=== PATIENT | male | born 2000 | race African-American/Black ===

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

== ENCOUNTER 2018-07-16 17:05 | Emergency (ER) | payer OTHER ==
[2018-07-16] MEDS ORDERED: IV NORMAL SALINE 1,000ML 1,000 ML IV SCH (17:30)
[2018-07-16] MEDS: ACETAMINOPHEN 650 MG SUPP.RECT. PR ONE ×2 (17:30→17:53)
--- NOTE | 2018-07-16 17:30 | PHYS DOC ---
Past History Past Medical History: No Pertinent History Past Surgical History: Other Smoking: Non-smoker Alcohol Use: None Drug Use: None Adult General Chief Complaint Chief Complaint: SEIZURE HPI HPI Patient is a 17 year old male who brought in because of seizure. Patient did not have history of seizures or normal symptoms this morning and his mother saw him. Patient had shaking and seizure-like activity while he was at work without loss of consciousness that last about 30 seconds and was not responding to the question but responding to pain. History was taking from patient mother. Review of Systems Review of Systems Unable to obtain because of medical condition Family History Family History Non-contributory Current Medications Current Medications See Nursing for home meds Current Medications Medications (Trade) Dose Ordered Sig/Jonnathan Start Time Stop Time Status Last Admin Dose Admin Acetaminophen (Tylenol Supp) 650 mg 1X ONCE 07/16/18 17:30 07/16/18 17:31 Sodium Chloride 1,000 ml @ 1,000 mls/hr Q1H 07/16/18 17:30 07/16/18 18:29 07/16/18 17:20 1,000 MLS/HR Allergies Allergies Allergies Coded Allergies Type Severity Reaction Last Updated Verified No Known Drug Allergies 11/26/16 No Physical Exam Physical Exam Constitutional: Well nourished, mild distress, non-toxic appearance does not answer the question but making noise and some words[] HENT: Normocephalic, atraumatic Eyes: PERRLA, EOMI, conjunctiva normal, no discharge. [] Neck: Normal range of motion, no tenderness, supple, no stridor. [] Cardiovascular: Tachycardia, no murmur [] Lungs & Thorax: Bilateral breath sounds clear to auscultation [] Abdomen: Bowel sounds normal, soft, no tenderness, no masses, no pulsatile masses. [] Skin: Warm, dry, no erythema, no rash. [] Back: No tenderness, no CVA tenderness. [] Extremities: No tenderness, no cyanosis, no clubbing, ROM intact, no edema. [] Neurologic: Lethargic, moves all extremities Psychologic: Unable to evaluate EKG hearing aide technician shows nl sinus tachycardia[] Radiology/Procedures Radiology/Procedures I interpretation of chest x-ray shows no acute cardiopulmonary findings. Does have borderline cardiomegaly. Some blunting a less closed phrenic angle. No free air in the diaphragm. No obvious fractures. My interpretation CT of head shows no shift, mass, edema, bleed, or fracture. Does have some increase patient ethmoid sinuses.[] Course & Med Decision Making Course & Med Decision Making Pertinent Labs and Imaging are pending. Patient Transferred to Dr. Berger at [address]. See Dr. Hansen chart for details. Procedure note-discussed risks and benefits with mother- indications and complications of spinal tap. Mother agrees to procedure for her son. Patient placed in the right left lateral position. Sterile technique use of mass, draping. Prepped lumbar L4 interspace.with betadine. . Injected area with lidocaine. Inserted a 23-gauge spinal needle with return of initially blood tinged spinal fluid which cleared by second 2 tube. Fluid sent for cultures and labs. Patient tolerated procedure well. Pt. did receive 2 mg Versed for his chills, twitching and spasms prior to procedure. Impression: 1. Acute Mental Status Change 2. New Onset Seizure 3. Fever 4. Rule out Meningitis 5. Viral Syndrome- ?, Garrard + Heterophil Agg. 6. Hyponatremia 7. Possible Prolonged Post ictal 8. Ethmoid Sinusitis Discussed presentation, testing and tx. plan with Dr. Preston- will accept pt for admission at [facility], with consults to neurology and infectious dz. There was some clearing of his mentation by time he was transfer to [facility]. Ketty Disclaimer Ketty Disclaimer This electronic medical record was generated, in whole or in part, using a voice recognition dictation system. Departure Departure: Impression: Primary Impression: Altered mental status, unspecified Referrals: YOMI JACOBS MD (PCP) ANTHONY HANSEN MD Jul 16, 2018 17:30 ROSENDO BERGER MD Jul 16, 2018 21:20
[2018-07-16 17:50] LABS: BASO % 1 % (0-3); EOS % 0 % (0-3); HEMATOCRIT 42.3 % (39.0-53.0); LYMPH # 1.3 x10^3/uL (1.0-4.8); LYMPH % 27 % (24-48); MEAN CORPUSCULAR HEMOGLOBIN 27 pg (25-35); MEAN CORPUSCULAR HGB CONC 33 g/dL (31-37); MEAN CORPUSCULAR VOLUME 83 fL (79-100); MONO # 0.5 x10^3/uL (0.0-1.1); MONO % 9 % (0-9); NEUT # 3.1 x10^3uL (1.8-7.7); NEUT % 63 % (31-73); PLATELET COUNT 201 x10^3/uL (140-400); RED BLOOD COUNT 5.13 x10^6/uL (4.30-5.70); RED CELL DISTRIBUTION WIDTH 13.6 % (11.5-14.5); WHITE BLOOD COUNT 4.9 x10^3/uL (4.0-11.0)
--- NOTE | 2018-07-16 17:56 | RAD ---
CT head without contrast HISTORY: Altered mental status, seizure and fever. TECHNIQUE: [address] imaging skull base to vertex. COMPARISON: CT head November 26, 2016. FINDINGS: No intracranial hemorrhage, mass, hydrocephalus, extra-axial fluid collections or infarction. No acute ischemic change. No malin matter heterotopia evident. Orbits, mastoids and bones are unremarkable. Mucosal thickening and partial opacification of the ethmoid sinuses. IMPRESSION: No acute intracranial CT abnormality. Ethmoid sinus disease. Exposure: One or more of the following individualized dose reduction techniques were utilized for this examination: 1. Automated exposure control 2. Adjustment of the mA and/or kV according to patient size 3. Use of iterative reconstruction technique Electronically signed by: Devan Palacio MD (07/16/2018 5:53 PM) [id number]
[2018-07-16] MEDS ORDERED: IV NORMAL SALINE 1,000ML 1,000 ML IV ONE ×2 (18:00)
--- NOTE | 2018-07-16 18:02 | RAD ---
PORTABLE CHEST 1V dated 07/16/2018 4:57 PM. Comparison: 11/26/2016 Clinical Indication: SEIZURE AND FEVER, AMS. Findings: Single upright portal exam performed. Heart and mediastinal contours are stable. Lung volumes are low, limiting evaluation. No consolidation or pleural effusion. No pneumothorax. Impression: No acute radiographic abnormality. Electronically signed by: Vernon Love MD (07/16/2018 5:59 PM) [facility]
[2018-07-16 18:04] LABS: ALBUMIN 3.9 g/dL (3.4-5.0); ALBUMIN/GLOBULIN RATIO 0.9 (1.0-1.7); CALCIUM 8.8 mg/dL (8.5-10.1); CREATININE 1.1 mg/dL (0.7-1.3); GFR 104.3; POTASSIUM 3.5 mmol/L (3.5-5.1); TOTAL BILIRUBIN 0.5 mg/dL (0.2-1.0); TOTAL PROTEIN 8.1 g/dL (6.4-8.2)
[2018-07-16 18:07] LABS: MONONUCLEOSIS PATIENT POSITIVE (NEGATIVE)
[2018-07-16] MEDS ORDERED: cefTRIAXone SODIUM 1 GM VIAL IV ONE ×2 (18:17→20:43)
[2018-07-16] MEDS ORDERED: IV NORMAL SALINE 50ML 50 ML ONE ×2 (18:17→20:43)
[2018-07-16 18:23] LABS: INFLUENZA A PATIENT NEGATIVE (NEGATIVE); INFLUENZA B PATIENT NEGATIVE (NEGATIVE)
[2018-07-16] MEDS ORDERED: MIDAZOLAM HCL PF 5 MG/5 ML VIAL. ONE (19:33)
[2018-07-16] MEDS ORDERED: LIDOCAINE 1%/EPI 1:100,000 20 ML VIAL. ONE (19:42)
[2018-07-16 19:44] LABS: BARBITURATES NEG (NEG); BENZODIAZEPINES NEG (NEG); CANNABINOIDS POS (NEG); COCAINE NEG (NEG); METHADONE NEG (NEG); OPIATES NEG (NEG); PHENCYCLIDINE NEG (NEG)
[2018-07-16 19:47] LABS: BILIRUBIN,URINE NEG (NEG); CLARITY,URINE CLEAR; COLOR,URINE YELLOW; GLUCOSE,URINE NEG (NEG)
[2018-07-16 19:48] LABS: BACTERIA,URINE 0 /HPF (0-FEW); NITRITE,URINE NEG (NEG); RBC,URINE RARE /HPF (0-2); SQUAMOUS EPITHELIAL CELL,UR OCC /LPF; UROBILINOGEN,URINE 1 mg/dL (0.2 mg/dL); WBC,URINE OCC /HPF (0-4)
[2018-07-16 19:49] LABS: AMPHETAMINE/METHAMPHETAMINE NEG (NEG)
[2018-07-16] MEDS: ACYCLOVIR SODIUM 800 MG in IV DEXTROSE 5% 250 ML IV STA ×2 (20:09→21:05)
[2018-07-16] MEDS ORDERED: ACETAMINOPHEN 500 MG TABLET PO ONE (20:15)
[2018-07-16] MEDS ORDERED: IV RINGERS SOLUTION,LACTATED 1,000 ML IV ONE (20:30)
[2018-07-16 20:50] LABS: CSF PROTEIN 36.9 mg/dL (15.0-45.0)
[2018-07-16 20:58] LABS: CSF COLOR COLORLESS
[2018-07-16 20:59] LABS: CSF CLARITY CLEAR
[2018-07-16 21:00] LABS: CSF MON % 3 %; CSF OTHER % 0 %; CSF PMN % 0 %; CSF RBC COUNT 12; CSF WBC COUNT 3
[2018-07-16 21:25] VITALS: BP 134/79
[2018-07-16] MEDS ORDERED: LIDOCAINE 1%/EPI 1:100,000 20 ML VIAL. IJ ONE (21:30)
[2018-07-16] MEDS ORDERED: MIDAZOLAM HCL PF 5 MG/5 ML VIAL. IV ONE (21:30)
== END 2018-07-16 22:23 | disposition short-term general hospital (02) ==
LOC: ER 17:05
DX: G40.89 Other seizures (principal); R41.82 Altered mental status, unspecified; E87.1 Hypo-osmolality and hyponatremia; J32.2 Chronic ethmoidal sinusitis
CPT/HCPCS: 36415; 62270; 70450; 71045; 80053; 80307; 81001; 82945; 82947; 83605; 84157; 85025; 85610; 86308; 87040; 87070; 87071; 87075; 87102; 87252; 87804; 87880; 89051; 96361; 96365; 96367; 96368; 99285; G0480; J0133; J0696; J2250; J7120; J7030

== ENCOUNTER 2018-12-02 22:09 | Emergency (ER) | payer OTHER ==
[~2018-12-02] VITALS: Ht 172.7 cm; Wt 110.1 kg
--- NOTE | 2018-12-02 22:14 | ED.ADGEN ---
Past History Past Medical History: No Pertinent History Past Surgical History: No Surgical History Smoking: Non-smoker Alcohol Use: Rarely Drug Use: None Adult General Chief Complaint Chief Complaint "... All of sudden I got this severe .. sharp Lt side chest . ..pain .. it worse with deep breaths or coughing..." HPI HPI Patient is a 18 year old male who presents with above hx and complaints sharp Lt. side chest pain. Pain appears to be pleuritic. Patient denies any history of trauma. Patient denies any history of travel or specific ill contacts. Patient denies any history of cardiac or DVT or pulmonary embolisms. Patient has not been coughing or having fevers. No history immunosuppression. Pt. last had vaginal intercourse approximately 1 yr ago. No hx prior UTI or STD's. Pt. hx recent mononucleosis. Pt. follows with Dr. Mendez Review of Systems Review of Systems Constitutional: Denies fever or chills [] Eyes: Denies change in visual acuity, redness, or eye pain [] HENT: Denies nasal congestion or sore throat [] Respiratory: Complaints of pleuritic chest pain Cardiovascular: No additional information not addressed in HPI [] GI: Denies abdominal pain, nausea, vomiting, bloody stools or diarrhea [] : Denies dysuria or hematuria [] Musculoskeletal: Denies back pain or joint pain [] Integument: Denies rash or skin lesions [] Neurologic: Denies headache, focal weakness or sensory changes [] Endocrine: Denies polyuria or polydipsia [] All other systems were reviewed and found to be within normal limits, except as documented in this note. Family History Family History Noncontributory Current Medications Current Medications Current Medications Medications (Trade) Dose Ordered Sig/Jonnathan Start Time Stop Time Status Last Admin Dose Admin Aspirin (Danny Aspirin) 325 mg 1X ONCE 12/02/18 22:45 12/02/18 22:46 DC Azithromycin (Zithromax) 1,000 mg 1X ONCE 12/02/18 23:45 12/02/18 23:46 DC 12/03/18 00:07 1,000 MG Ceftriaxone Sodium 1 gm/ Sodium Chloride 50 ml @ 100 mls/hr 1X ONCE 12/02/18 23:45 12/03/18 00:14 DC 12/03/18 00:07 100 MLS/HR Ceftriaxone Sodium (Rocephin) 1 gm STK-MED ONCE 12/02/18 23:55 12/02/18 23:56 DC Cephalexin HCl (Keflex) 500 mg 1X ONCE 12/02/18 23:30 12/02/18 23:31 DC 12/02/18 23:33 500 MG Info (Do NOT chart on this entry -- for MONITORING) 1 each PRN DAILY PRN 12/02/18 23:45 12/03/18 01:03 DC Iohexol (Omnipaque 350 Mg/ml) 100 ml 1X ONCE 12/02/18 23:45 12/02/18 23:46 DC Ketorolac Tromethamine (Toradol 30mg Vial) 30 mg 1X ONCE 12/02/18 22:45 12/02/18 22:46 DC 12/02/18 22:48 30 MG Magnesium Hydroxide (Milk Of Magnesia) 2,400 mg 1X ONCE 12/02/18 23:30 12/02/18 23:31 DC 12/02/18 23:33 2,400 MG Metronidazole (Flagyl) 2,000 mg 1X ONCE 12/02/18 23:45 12/02/18 23:46 DC 12/03/18 00:08 2,000 MG Ondansetron HCl (Zofran) 8 mg 1X ONCE 12/02/18 23:45 12/02/18 23:46 DC 12/03/18 00:07 8 MG Sodium Chloride 50 ml @ As Directed STK-MED ONCE 12/02/18 23:55 12/02/18 23:56 DC Allergies Allergies Allergies Coded Allergies Type Severity Reaction Last Updated Verified No Known Drug Allergies 11/26/16 No Physical Exam Physical Exam Constitutional: in acute distress, non-toxic appearance. [] HENT: Normocephalic, atraumatic, bilateral external ears normal, oropharynx moist, no oral exudates, nose normal. [] Eyes: PERRLA, EOMI, conjunctiva normal, no discharge. [] Neck: Normal range of motion, no tenderness, supple, no stridor. [] Cardiovascular:Heart rate regular rhythm, no murmur [] Lungs & Thorax: Bilateral breath sounds equal at apexes with a slight rub on left lower chest auscultation [] Abdomen: Bowel sounds normal, soft, no tenderness, no masses, no pulsatile masses. [] Skin: Warm, dry, no erythema, no rash. [] Back: No tenderness, no CVA tenderness. [] Extremities: No tenderness, no cyanosis, no clubbing, ROM intact, no edema. [] No cording appreciated Neurologic: Alert and oriented X 3, normal motor function, normal sensory function, no focal deficits noted. [] Psychologic: Affect anxious, judgement normal, mood normal. [] Current Patient Data Lab Results Laboratory Tests Test 12/02/18 22:22 12/02/18 22:55 White Blood Count 9.6 x10^3/uL (4.0-11.0) Red Blood Count 5.02 x10^6/uL (4.30-5.70) Hemoglobin 13.7 g/dL (13.0-17.5) Hematocrit 41.2 % (39.0-53.0) Mean Corpuscular Volume 82 fL (79-100) Mean Corpuscular Hemoglobin 27 pg (25-35) Mean Corpuscular Hemoglobin Concent 33 g/dL (31-37) Red Cell Distribution Width 13.3 % (11.5-14.5) Platelet Count 251 x10^3/uL (140-400) Neutrophils (%) (Auto) 66 % (31-73) Lymphocytes (%) (Auto) 22 % (24-48) L Monocytes (%) (Auto) 8 % (0-9) Eosinophils (%) (Auto) 2 % (0-3) Basophils (%) (Auto) 1 % (0-3) Neutrophils # (Auto) 6.4 x10^3uL (1.8-7.7) Lymphocytes # (Auto) 2.1 x10^3/uL (1.0-4.8) Monocytes # (Auto) 0.7 x10^3/uL (0.0-1.1) Eosinophils # (Auto) 0.2 x10^3/uL (0.0-0.7) Basophils # (Auto) 0.1 x10^3/uL (0.0-0.2) Prothrombin Time 10.9 SEC (9.4-11.4) Prothrombin Time INR 1.1 (0.9-1.1) PTT 26 SEC (23-33) D-Dimer (Ashley) < 0.19 mg/L (0.00-0.50) Sodium Level 140 mmol/L (136-145) Potassium Level 4.1 mmol/L (3.5-5.1) Chloride Level 104 mmol/L (98-107) Carbon Dioxide Level 29 mmol/L (21-32) Anion Gap 7 (6-14) Blood Urea Nitrogen 13 mg/dL (8-26) Creatinine 1.1 mg/dL (0.7-1.3) Estimated GFR (Cockcroft-Gault) 103.3 Glucose Level 83 mg/dL (70-99) Calcium Level 9.3 mg/dL (8.5-10.1) Magnesium Level 1.7 mg/dL (1.8-2.4) L Total Bilirubin 0.4 mg/dL (0.2-1.0) Direct Bilirubin 0.1 mg/dL (0.0-0.2) Aspartate Amino Transferase (AST) 30 U/L (15-37) Alanine Aminotransferase (ALT) 35 U/L (16-63) Alkaline Phosphatase 80 U/L (46-116) Creatine Kinase 637 U/L (39-308) H Troponin I Quantitative < 0.017 ng/mL (0-0.055) HN-Wmn-H-Type Natriuretic Peptide 11 pg/mL (0-124) Total Protein 7.7 g/dL (6.4-8.2) Albumin 4.1 g/dL (3.4-5.0) Lipase 165 U/L (73-393) Urine Collection Type Unknown Urine Color Yellow Urine Clarity Hazy Urine pH 7.5 Urine Specific [place] 1.020 Urine Protein Neg (NEG-TRACE) Urine Glucose (UA) Neg mg/dL (NEG) Urine Ketones (Stick) Neg mg/dL (NEG) Urine Blood Neg (NEG) Urine Nitrite Neg (NEG) Urine Bilirubin Neg (NEG) Urine Urobilinogen Dipstick 2 mg/dL (0.2 mg/dL) Urine Leukocyte Esterase Mod (NEG) Urine RBC 1-2 /HPF (0-2) Urine WBC >40 /HPF (0-4) Urine Squamous Epithelial Cells None /LPF Urine Bacteria Few /HPF (0-FEW) Urine Opiates Screen Neg (NEG) Urine Methadone Screen Neg (NEG) Urine Barbiturates Neg (NEG) Urine Phencyclidine Screen Neg (NEG) Urine Amphetamine/Methamphetamine Neg (NEG) Urine Benzodiazepines Screen Neg (NEG) Urine Cocaine Screen Neg (NEG) Urine Cannabinoids Screen Neg (NEG) Urine Ethyl Alcohol Neg (NEG) EKG EKG My interpretation EKG shows a sinus rhythm at 87 bpm. There is mild right axis changes with nonspecific contour changes in the lateral leads. No findings acute STEMI with contralateral changes.[] Radiology/Procedures Radiology/Procedures I interpretation of chest x-ray shows no acute cardiopulmonary findings.[] CT chest shows no pulmonary embolism. No large infiltrate. No pleuritic changes. Course & Med Decision Making Course & Med Decision Making Pertinent Labs and Imaging studies reviewed. (See chart for details) Take Tylenol and ibuprofen as needed for pain. Follow-up primary care. Take Keflex 500 mg 3 times a day. Follow-up urine cultures. Return if any concerns. [] Final Impression Final Impression 1. Chest Pain[]- Chest wall- 2. UTI 3. Hypomagnesium 4. Recent Dx. Mononucleosis Dragon Disclaimer Dragon Disclaimer This electronic medical record was generated, in whole or in part, using a voice recognition dictation system. Discharge Summary Visit Information Final Diagnosis Problems Medical Problems: (1) Chest wall pain Status: Acute (2) Pleural disorder Status: Acute (3) Urinary tract infection Status: Acute Brief Hospital Course Allergies Allergies Coded Allergies Type Severity Reaction Last Updated Verified No Known Drug Allergies 11/26/16 No Lab Results Laboratory Tests Test 12/02/18 22:22 12/02/18 22:55 White Blood Count 9.6 x10^3/uL (4.0-11.0) Red Blood Count 5.02 x10^6/uL (4.30-5.70) Hemoglobin 13.7 g/dL (13.0-17.5) Hematocrit 41.2 % (39.0-53.0) Mean Corpuscular Volume 82 fL (79-100) Mean Corpuscular Hemoglobin 27 pg (25-35) Mean Corpuscular Hemoglobin Concent 33 g/dL (31-37) Red Cell Distribution Width 13.3 % (11.5-14.5) Platelet Count 251 x10^3/uL (140-400) Neutrophils (%) (Auto) 66 % (31-73) Lymphocytes (%) (Auto) 22 % (24-48) Monocytes (%) (Auto) 8 % (0-9) Eosinophils (%) (Auto) 2 % (0-3) Basophils (%) (Auto) 1 % (0-3) Neutrophils # (Auto) 6.4 x10^3uL (1.8-7.7) Lymphocytes # (Auto) 2.1 x10^3/uL (1.0-4.8) Monocytes # (Auto) 0.7 x10^3/uL (0.0-1.1) Eosinophils # (Auto) 0.2 x10^3/uL (0.0-0.7) Basophils # (Auto) 0.1 x10^3/uL (0.0-0.2) Prothrombin Time 10.9 SEC (9.4-11.4) Prothromb Time International Ratio 1.1 (0.9-1.1) Activated Partial Thromboplast Time 26 SEC (23-33) D-Dimer (Ashley) < 0.19 mg/L (0.00-0.50) Sodium Level 140 mmol/L (136-145) Potassium Level 4.1 mmol/L (3.5-5.1) Chloride Level 104 mmol/L (98-107) Carbon Dioxide Level 29 mmol/L (21-32) Anion Gap 7 (6-14) Blood Urea Nitrogen 13 mg/dL (8-26) Creatinine 1.1 mg/dL (0.7-1.3) Estimated GFR (Cockcroft-Gault) 103.3 Glucose Level 83 mg/dL (70-99) Calcium Level 9.3 mg/dL (8.5-10.1) Magnesium Level 1.7 mg/dL (1.8-2.4) Total Bilirubin 0.4 mg/dL (0.2-1.0) Direct Bilirubin 0.1 mg/dL (0.0-0.2) Aspartate Amino Transf (AST/SGOT) 30 U/L (15-37) Alanine Aminotransferase (ALT/SGPT) 35 U/L (16-63) Alkaline Phosphatase 80 U/L (46-116) Creatine Kinase 637 U/L (39-308) Troponin I Quantitative < 0.017 ng/mL (0-0.055) EY-Kyf-M-Type Natriuretic Peptide 11 pg/mL (0-124) Total Protein 7.7 g/dL (6.4-8.2) Albumin 4.1 g/dL (3.4-5.0) Lipase 165 U/L (73-393) Urine Collection Type Unknown Urine Color Yellow Urine Clarity Hazy Urine pH 7.5 Urine Specific [place] 1.020 Urine Protein Neg (NEG-TRACE) Urine Glucose (UA) Neg mg/dL (NEG) Urine Ketones (Stick) Neg mg/dL (NEG) Urine Blood Neg (NEG) Urine Nitrite Neg (NEG) Urine Bilirubin Neg (NEG) Urine Urobilinogen Dipstick 2 mg/dL (0.2 mg/dL) Urine Leukocyte Esterase Mod (NEG) Urine RBC 1-2 /HPF (0-2) Urine WBC >40 /HPF (0-4) Urine Squamous Epithelial Cells None /LPF Urine Bacteria Few /HPF (0-FEW) Urine Opiates Screen Neg (NEG) Urine Methadone Screen Neg (NEG) Urine Barbiturates Neg (NEG) Urine Phencyclidine Screen Neg (NEG) Urine Amphetamine/Methamphetamine Neg (NEG) Urine Benzodiazepines Screen Neg (NEG) Urine Cocaine Screen Neg (NEG) Urine Cannabinoids Screen Neg (NEG) Urine Ethyl Alcohol Neg (NEG) Brief Hospital Course Mr. Shell is a 18 old male who presented with pleuritic Lt. chest wall pain and uti Discharge Information Condition at Discharge: Improved, Stable Disposition/Orders: D/C to Home Dischare Medications Current Medications Sodium Chloride 1,000 ml @ 1,000 mls/hr Q1H IV Last administered on 12/02/18at 22:47; Admin Dose 1,000 MLS/HR; Start 12/02/18 at 22:28; Stop 12/02/18 at 23:27; Status DC Ketorolac Tromethamine (Toradol 30mg Vial) 30 mg 1X ONCE IV Last administered on 12/02/18at 22:48; Admin Dose 30 MG; Start 12/02/18 at 22:45; Stop 12/02/18 at 22: 46; Status DC Aspirin (Danny Aspirin) 325 mg 1X ONCE PO ; Start 12/02/18 at 22:45; Stop at 22:46; Status DC Magnesium Hydroxide (Milk Of Magnesia) 2,400 mg 1X ONCE PO Last administered on 12/02/18at 23:33; Admin Dose 2,400 MG; Start 12/02/18 at 23:30; Stop 12/02/18 at 23:31; Status DC Cephalexin HCl (Keflex) 500 mg 1X ONCE PO Last administered on 12/02/18at 23:33 ; Admin Dose 500 MG; Start 12/02/18 at 23:30; Stop 12/02/18 at 23:31; Status DC Iohexol (Omnipaque 350 Mg/ml) 100 ml 1X ONCE IV ; Start 12/02/18 at 23:45; Stop 12/02/18 at 23:46; Status DC Azithromycin (Zithromax) 1,000 mg 1X ONCE PO Last administered on 12/03/18at 00: 07; Admin Dose 1,000 MG; Start 12/02/18 at 23:45; Stop 12/02/18 at 23:46; Status DC Ondansetron HCl (Zofran) 8 mg 1X ONCE IV Last administered on 12/03/18at 00:07; Admin Dose 8 MG; Start 12/02/18 at 23:45; Stop 12/02/18 at 23:46; Status DC Metronidazole (Flagyl) 2,000 mg 1X ONCE PO Last administered on 12/03/18at 00:08 ; Admin Dose 2,000 MG; Start 12/02/18 at 23:45; Stop 12/02/18 at 23:46; Status DC Ceftriaxone Sodium 1 gm/ Sodium Chloride 50 ml @ 100 mls/hr 1X ONCE IV Last administered on 12/03/18at 00:07; Admin Dose 100 MLS/HR; Start 12/02/18 at 23:45; Stop 12/03/18 at 00:14; Status DC Info (Do NOT chart on this entry -- for MONITORING) 1 each PRN DAILY PRN MC SEE COMMENTS; Start 12/02/18 at 23:45; Stop 12/03/18 at 01:03; Status DC Sodium Chloride 50 ml @ As Directed STK-MED ONCE .ROUTE ; Start 12/02/18 at 23:55 ; Stop 12/02/18 at 23:56; Status DC Ceftriaxone Sodium (Rocephin) 1 gm STK-MED ONCE .ROUTE ; Start 12/02/18 at 23:55 ; Stop 12/02/18 at 23:56; Status DC Active Scripts Active Keflex (Cephalexin) 500 Mg Capsule 500 Mg PO TID Ketty Disclaimer This chart was dictated in whole or in part using Voice Recognition software in a busy, high-work load, and often noisy Emergency Department environment. It may contain unintended and wholly unrecognized errors or omissions. ROSENDO MACIAS MD Dec 02, 2018 22:14
[2018-12-02] MEDS ORDERED: IV NORMAL SALINE 1,000ML 1,000 ML IV SCH (22:28)
[2018-12-02 22:40] LABS: BASO # 0.1 x10^3/uL (0.0-0.2); BASO % 1 % (0-3); EOS # 0.2 x10^3/uL (0.0-0.7); EOS % 2 % (0-3); HEMATOCRIT 41.2 % (39.0-53.0); HEMOGLOBIN 13.7 g/dL (13.0-17.5); LYMPH # 2.1 x10^3/uL (1.0-4.8); LYMPH % 22 % (24-48); MEAN CORPUSCULAR HEMOGLOBIN 27 pg (25-35); MEAN CORPUSCULAR HGB CONC 33 g/dL (31-37); MEAN CORPUSCULAR VOLUME 82 fL (79-100); MONO # 0.7 x10^3/uL (0.0-1.1); MONO % 8 % (0-9); NEUT # 6.4 x10^3uL (1.8-7.7); NEUT % 66 % (31-73); PLATELET COUNT 251 x10^3/uL (140-400); RED BLOOD COUNT 5.02 x10^6/uL (4.30-5.70); RED CELL DISTRIBUTION WIDTH 13.3 % (11.5-14.5); WHITE BLOOD COUNT 9.6 x10^3/uL (4.0-11.0)
[2018-12-02] MEDS ORDERED: KETOROLAC 30 MG/ML VIAL. IV ONE (22:45)
[2018-12-02] MEDS: ASPIRIN 325 MG TABLET PO ONE ×2 (22:45→22:47)
[2018-12-02 22:59] LABS: ALBUMIN 4.1 g/dL (3.4-5.0); CALCIUM 9.3 mg/dL (8.5-10.1); CREATININE 1.1 mg/dL (0.7-1.3); DIRECT BILIRUBIN 0.1 mg/dL (0.0-0.2); GFR 103.3; MAGNESIUM 1.7 mg/dL (1.8-2.4); TOTAL BILIRUBIN 0.4 mg/dL (0.2-1.0); TOTAL PROTEIN 7.7 g/dL (6.4-8.2)
[2018-12-02 23:03] LABS: POTASSIUM 4.1 mmol/L (3.5-5.1)
[2018-12-02 23:17] LABS: BILIRUBIN,URINE NEG (NEG); CLARITY,URINE HAZY; COLOR,URINE YELLOW; GLUCOSE,URINE NEG (NEG); NITRITE,URINE NEG (NEG); UROBILINOGEN,URINE 2 mg/dL (0.2 mg/dL)
[2018-12-02 23:18] LABS: BACTERIA,URINE FEW /HPF (0-FEW); BARBITURATES NEG (NEG); BENZODIAZEPINES NEG (NEG); CANNABINOIDS NEG (NEG); COCAINE NEG (NEG); METHADONE NEG (NEG); OPIATES NEG (NEG); PHENCYCLIDINE NEG (NEG); WBC,URINE >40 /HPF (0-4)
[2018-12-02 23:19] LABS: AMPHETAMINE/METHAMPHETAMINE NEG (NEG)
[2018-12-02] MEDS ORDERED: CEPHALEXIN 250 MG CAPSULE PO ONE (23:30)
[2018-12-02] MEDS ORDERED: MAGNESIUM HYDROXIDE 2,400 MG/30 ML ORAL.SUSP. PO ONE (23:30)
[2018-12-02] MEDS ORDERED: metroNIDAZOLE 500 MG TABLET PO ONE (23:45)
[2018-12-02] MEDS ORDERED: ONDANSETRON PF 4 MG/2 ML VIAL. IV ONE (23:45)
[2018-12-02] MEDS ORDERED: CONTRAST GIVEN MC PRN (23:45)
[2018-12-02] MEDS ORDERED: IOHEXOL 350 MG/ML 100 ML VIAL. IV ONE (23:45)
[2018-12-02] MEDS ORDERED: AZITHROMYCIN 250 MG TABLET. PO ONE (23:45)
[2018-12-02] MEDS ORDERED: CEPH-264 PO (23:50)
[2018-12-02] MEDS ORDERED: cefTRIAXone SODIUM 1 GM VIAL ONE (23:55)
[2018-12-02] MEDS ORDERED: IV NORMAL SALINE 50ML 50 ML ONE (23:55)
[2018-12-03 00:35] VITALS: BP 148/82
--- NOTE | 2018-12-03 00:50 | RAD ---
CTA Chest with contrast: Clinical History: Omni 350, 100ml IV. Chest pain, pleuritic. No hx injury or surgery to chest Shortness of breath. Axial helical images of the chest were obtained after the administration of 100 cc of IV Isovue-370 and timed appropriately for a pulmonary arterial study. Conventional axial reconstruction was performed in addition to coronal, sagittal and bilateral oblique MIP (maximum intensity projection). This study was ordered to detect possible pulmonary embolism. There are no filling defects to suggest pulmonary embolism. The lungs and pleural margins are clear. There is no mediastinal or hilar lymphadenopathy. The thoracic aorta appears normal. Impression: 1. No evidence of pulmonary embolism. 2. No significant findings. PQRS Compliance Statement: One or more of the following individualized dose reduction techniques were utilized for this examination: 1. Automated exposure control 2. Adjustment of the mA and/or kV according to patient size 3. Use of iterative reconstruction technique Electronically signed by: Dhaval Richey III, MD (12/03/2018 12:47 AM) [facility]
--- NOTE | 2018-12-03 00:50 | RAD ---
CHEST PA LATERAL Technique: PA and lateral views of the chest were obtained. Clinical History: Chest pain. No hx injury or surgery
Comparison: None. Findings: The heart and pulmonary vasculature appear within normal limits. The lungs are clear. The pleural margins are clear. Impression: No acute chest process is seen. Electronically signed by: Dhaval Richey III, MD (12/03/2018 12:47 AM) [facility]
--- NOTE | 2018-12-03 02:22 | EKG ---
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
[2018-12-03] MEDS ORDERED: TRAM50TA PO (14:22)
== END 2018-12-03 01:02 | disposition home or self-care (01) ==
LOC: ER 22:09
DX: R07.81 Pleurodynia (principal); N39.0 Urinary tract infection, site not specified; E83.42 Hypomagnesemia
CPT/HCPCS: 36415; 71046; 71275; 80048; 80076; 80307; 81001; 82550; 83690; 83735; 83880; 84443; 84484; 85025; 85379; 85610; 85730; 87086; 87491; 87591; 93005; 96365; 96375; 99284; J0456; J0696; J1885; J2405; J7030

== ENCOUNTER 2018-12-03 12:31 | Emergency (ER) | payer OTHER ==
[~2018-12-03] VITALS: Ht 172.7 cm; Wt 111.0 kg
[~2018-12-03 12:31] MED LIST: CEPH-264 PO
[2018-12-03] MEDS ORDERED: IV NORMAL SALINE 1,000ML 1,000 ML IV ONE (12:45)
[2018-12-03] MEDS ORDERED: KETOROLAC 30 MG/ML VIAL. IV ONE (13:00)
[2018-12-03 13:04] LABS: BASO # 0.1 x10^3/uL (0.0-0.2); BASO % 1 % (0-3); EOS # 0.2 x10^3/uL (0.0-0.7); EOS % 3 % (0-3); HEMATOCRIT 39.7 % (39.0-53.0); HEMOGLOBIN 13.2 g/dL (13.0-17.5); LYMPH # 1.3 x10^3/uL (1.0-4.8); LYMPH % 22 % (24-48); MEAN CORPUSCULAR HEMOGLOBIN 27 pg (25-35); MEAN CORPUSCULAR HGB CONC 33 g/dL (31-37); MEAN CORPUSCULAR VOLUME 82 fL (79-100); MONO # 0.5 x10^3/uL (0.0-1.1); MONO % 9 % (0-9); NEUT % 66 % (31-73); PLATELET COUNT 210 x10^3/uL (140-400); RED BLOOD COUNT 4.87 x10^6/uL (4.30-5.70); RED CELL DISTRIBUTION WIDTH 13.6 % (11.5-14.5); WHITE BLOOD COUNT 6.1 x10^3/uL (4.0-11.0)
--- NOTE | 2018-12-03 13:18 | PHYS DOC ---
Past History Past Medical History: UTI Past Surgical History: No Surgical History Smoking: Non-smoker Alcohol Use: Rarely Drug Use: None Adult General Chief Complaint Chief Complaint: CHEST WALL PAIN HPI HPI 18-year-old male returns emergency room with left-sided chest wall pain. The patient was seen in this emergency room by my colleague about 12 hours ago with the same complaint. He was diagnosed with UTI, treated, and released. When the patient left he had no more chest wall pain. While the patient was at work, he began to have this same pain again. He did not take any medications. He came back to the emergency room. The patient does describes the pain as sharp pain in the left lateral chest that is moderate in intensity. He denies shortness of breath or diaphoresis. He denies fever or chills. Review of Systems Review of Systems Constitutional: Denies fever or chills [] Eyes: Denies change in visual acuity, redness, or eye pain [] HENT: Denies nasal congestion or sore throat [] Respiratory: Denies cough or shortness of breath [] Cardiovascular: No additional information not addressed in HPI [] GI: Denies abdominal pain, nausea, vomiting, bloody stools or diarrhea [] : Denies dysuria or hematuria [] Musculoskeletal: Denies back pain or joint pain [] Integument: Denies rash or skin lesions [] Neurologic: Denies headache, focal weakness or sensory changes [] Endocrine: Denies polyuria or polydipsia [] All other systems were reviewed and found to be within normal limits, except as documented in this note. Current Medications Current Medications Current Medications Medications (Trade) Dose Ordered Sig/Jonnathan Start Time Stop Time Status Last Admin Dose Admin Ketorolac Tromethamine (Toradol 30mg Vial) 30 mg 1X ONCE 12/03/18 13:00 12/03/18 13:01 DC 12/03/18 12:56 30 MG Sodium Chloride 1,000 ml @ 1,000 mls/hr 1X ONCE 12/03/18 12:45 12/03/18 13:44 12/03/18 12:55 1,000 MLS/HR Allergies Allergies Allergies Coded Allergies Type Severity Reaction Last Updated Verified No Known Drug Allergies 11/26/16 No Physical Exam Physical Exam Constitutional: Well developed, obese, well nourished, no acute distress, non- toxic appearance. [] HENT: Normocephalic, atraumatic, bilateral external ears normal, oropharynx moist, no oral exudates, nose normal. [] Eyes: PERRLA, EOMI, conjunctiva normal, no discharge. [] Neck: Normal range of motion, no tenderness, supple, no stridor. [] Cardiovascular:Heart rate regular rhythm, no murmur [] Lungs & Thorax: Bilateral breath sounds clear to auscultation [] Abdomen: Bowel sounds normal, soft, no tenderness, no masses, no pulsatile masses. [] Skin: Warm, dry, no erythema, no rash. [] Back: No tenderness, no CVA tenderness. [] Extremities: No tenderness, no cyanosis, no clubbing, ROM intact, no edema. [] Neurologic: Alert and oriented X 3, normal motor function, normal sensory function, no focal deficits noted. [] Psychologic: Affect normal, judgement normal, mood normal. [] Current Patient Data Vital Signs Vital Signs Date Time Temp Pulse Resp B/P (MAP) Pulse Ox O2 Delivery O2 Flow Rate FiO2 12/03/18 12:40 98.2 90 18 98 Room Air Lab Results Laboratory Tests Test 12/03/18 12:53 White Blood Count 6.1 x10^3/uL (4.0-11.0) Red Blood Count 4.87 x10^6/uL (4.30-5.70) Hemoglobin 13.2 g/dL (13.0-17.5) Hematocrit 39.7 % (39.0-53.0) Mean Corpuscular Volume 82 fL (79-100) Mean Corpuscular Hemoglobin 27 pg (25-35) Mean Corpuscular Hemoglobin Concent 33 g/dL (31-37) Red Cell Distribution Width 13.6 % (11.5-14.5) Platelet Count 210 x10^3/uL (140-400) Neutrophils (%) (Auto) 66 % (31-73) Lymphocytes (%) (Auto) 22 % (24-48) L Monocytes (%) (Auto) 9 % (0-9) Eosinophils (%) (Auto) 3 % (0-3) Basophils (%) (Auto) 1 % (0-3) Neutrophils # (Auto) 4.0 x10^3uL (1.8-7.7) Lymphocytes # (Auto) 1.3 x10^3/uL (1.0-4.8) Monocytes # (Auto) 0.5 x10^3/uL (0.0-1.1) Eosinophils # (Auto) 0.2 x10^3/uL (0.0-0.7) Basophils # (Auto) 0.1 x10^3/uL (0.0-0.2) EKG EKG [] Radiology/Procedures Radiology/Procedures [] Impressions: EXAM: Chest, 2 views. HISTORY: Chest pain. COMPARISON: 12/02/2018 FINDINGS: 2 views of the chest are obtained. There is no infiltrate, pleural effusion or pneumothorax. The heart is normal in size. IMPRESSION: No acute pulmonary finding. Electronically signed by: Emily Maria MD (12/03/2018 1:21 PM) [facility] DICTATED AND SIGNED BY: EMILY MARIA MD DATE: 12/03/18 1321 CC: SLAVA DEAN DO; YOMI JACOBS MD Course & Med Decision Making Course & Med Decision Making Pertinent Labs and Imaging studies reviewed. (See chart for details) Patient's EKG is unremarkable. His troponin is negative. His chest x-ray is unremarkable given 30 mg of Toradol IV. He continues to have pain. At this point it appears musculoskeletal. I have given him 50 mg of tramadol. I will discharge him with a short course of the same medication and advised that he follow-up with his PCP. [] Dragon Disclaimer Dragon Disclaimer This electronic medical record was generated, in whole or in part, using a voice recognition dictation system. Departure Departure: Impression: Primary Impression: Chest wall pain Disposition: 01 HOME, SELF-CARE Condition: STABLE Referrals: YOMI JACOBS MD (PCP) Patient Instructions: Chest Wall Pain, [id number] Scripts Tramadol Hcl (TRAMADOL HCL) 50 Mg Tablet 50 MG PO PRN Q6HRS PRN for PAIN, #14 TAB Prov: SLAVA DEAN DO 12/03/18 SLAVA DEAN DO Dec 03, 2018 13:18
--- NOTE | 2018-12-03 13:24 | RAD ---
EXAM: Chest, 2 views. HISTORY: Chest pain. COMPARISON: 12/02/2018 FINDINGS: 2 views of the chest are obtained. There is no infiltrate, pleural effusion or pneumothorax. The heart is normal in size. IMPRESSION: No acute pulmonary finding. Electronically signed by: Emily Maria MD (12/03/2018 1:21 PM) [facility]
[2018-12-03 14:01] LABS: ALBUMIN 3.5 g/dL (3.4-5.0); TOTAL BILIRUBIN 0.3 mg/dL (0.2-1.0)
[2018-12-03 14:13] LABS: POTASSIUM ISTAT 3.9 mmol/L (3.5-5.0)
[2018-12-03 14:14] LABS: HEMOGLOBIN ISTAT 12.9 gm/dL
[2018-12-03 14:19] LABS: DIRECT BILIRUBIN 0.1 mg/dL (0.0-0.2)
[2018-12-03] MEDS ORDERED: TRAM50TA PO (14:22)
[2018-12-03] MEDS ORDERED: traMADol 50 MG TABLET PO ONE (14:30)
[2018-12-03 14:41] VITALS: BP 138/81
--- NOTE | 2018-12-03 17:20 | EKG ---
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
== END 2018-12-03 14:42 | disposition home or self-care (01) ==
LOC: ER 12:31
DX: R07.89 Other chest pain (principal); Z87.440 Personal history of urinary (tract) infections
CPT/HCPCS: 36415; 71046; 80047; 80076; 84484; 85025; 93005; 96374; 99284; J1885; J7030